=== PATIENT | male | born 1965 | race Caucasian/White ===

== ENCOUNTER → 2017-02-09 | Outpatient (CLI) | payer BC ==
--- NOTE | 2017-02-09 12:19 | CARD ---
APPROVED REPORT INDICATION Chest Pain Reason : Patient complained of pain PROCEDURE The patient underwent an Exercise Stress Test using the Demetrius Protocol. Blood pressure, heart rate, a nd EKG were monitored. An Echocardiogram was performed by tool repair technician in four stages in quad fashion. At peak stress four se lected images were obtained and placed side by side with resting images for comparison. STRESS ECHO FINDINGS The resting Echocardiogram showed normal left ventricular systolic contractility with an estimated Ej ection Fraction of about 60 %. The Resting Echocardiogram showed normal augmentation of myocardial wall segments using a 16 segment model. The Stress Echocardiogram showed normal augmentation of myocardial wall segments using a 16 segment m corby. The Stress Echocardiogram left ventricular systolic contractility has an estimated Ejection Fraction of about 65%. Test Type: Exercise Stress Nurse/Tech: Nathalie Chirinos APRN Test Indications: Chest pain Cardiac History and Allergies: Hypertension Medications: None Resting ECG: Normal sinus rythmn Resting Heart Rate: 77 bpm Resting Blood Pressure: 140/88mmHg Pretest Chest Pain: None Stress Symptoms None POST EXERCISE Reason for Termination: THR, elevated BP Target HR: 171 Max HR: 171 bpm 100% of Maximum Predicted HR: 171 bpm Exercise duration: 9:42 min:sec, 4 Stage Exercise capacity: 13.4METs Max Blood Pressure: 208/106mmHg Blood Pressure response to exercise: Abnormal increase in blood pressure during stress. Heart Rate response to exercise: normal Chest Pain: No. Arrhythmia: No. ST Change: Yes. depression inferior and anterior lateral leads Deviation: 1 mm RESTING ECG Rhythm: Sinus Conduction: Normal Arrhythmias: None Repolarization: Normal STRESS ECG Rhythm: Sinus Tachycardia Arrhythmias: None Repolarization: nonspecific ST-T changes Stress EKG shows no significant changes. Preliminary Notification Critical Value: No <Conclusion> Good exercise capacity with 10 mets achieved on Demetrius protocol Hypertensive BP response noted. Normal resting wall motion and EF at 55% Normal stress wall motion and appropriate hyperdynamic response with an EF > 70% Low risk study
== END | disposition home or self-care (01) ==
LOC: ECHO 09:37
PROVIDERS: ATTEND Internal Medicine Cardiovascular Disease
DX: I10 Essential (primary) hypertension (principal)
CPT/HCPCS: 93307; 93350